=== PATIENT | female | born 1940 | race Caucasian/White ===

== ENCOUNTER 2016-11-10 20:42 | Emergency (ER) | payer MEDICARE ==
[~2016-11-10] VITALS: Ht 165.1 cm; Wt 97.5 kg
[~2016-11-10 20:42] MED LIST: HYDR-3812 PO
--- NOTE | 2016-11-10 21:01 | ED Chest Pain ---
General Chief Complaint: Chest Pain Stated Complaint: CHEST PAIN Source: patient, EMS, RN notes reviewed Exam Limitations: no limitations History of Present Illness Time seen by provider: 21:01 Initial Comments Sharp left sided chest pain that developed just MOTHER SUPERIOR while @ dinner p/ burping. Did radiate into her left arm. Much better now following 2 SL NTG. Denies any N/V, diaphoresis, or SOA. Severity/Quality: mild, sharp, stabbing Location: other (left chest) Radiation: arms (left) Activities at Onset: other (P/ burping while @ dinner) Modifying Factors: improves with nitroglycerin NTG SL MOTHER SUPERIOR: Yes Associated Symptoms: denies symptoms heartburn (???) Allergies and Home Medications Allergies Coded Allergies: No Known Drug Allergies (Unverified , 03/19/15) Home Medications (Reported) (Reported) Acetaminophen 500 Mg Tablet 1,000 MG PO Q6H PRN PRN PAIN (Reported) Lovastatin 40 Mg Tablet 40 MG PO supper meal (Reported) Review of Systems Constitutional: see HPI Cardiovascular: See HPI Chest Pain All Other Systems Reviewed Negative Unless Noted: Yes Past [employer]jp[employer]-Ryrfas-Nztkwe Hx Immunizations Up To Date Tetanus Booster (TDap): Unknown Date of Pneumonia Vaccine: Mar 20, 2012 Date of Influenza Vaccine: Oct 07, 2014 Seasonal Allergies Seasonal Allergies: Yes Surgeries HX Surgeries: No Surgeries: Appendectomy, Oophorectomy, Tubal Ligation Respiratory Hx Respiratory Disorders: Yes Respiratory Disorders: Pulmonary Embolism Cardiovascular Hx Cardiac Disorders: Yes Cardiac Disorders: Hypertension Neurological Hx Neurological Disorders: No Genitourinary Hx Genitourinary Disorders: Yes (INCONTINENT ) Gastrointestinal Hx Gastrointestinal Disorders: No Musculoskeletal Hx Musculoskeletal Disorders: No Musculoskeletal Disorders: Arthritis Endocrine Hx Endocrine Disorders: No HEENT HX ENT Disorders: No Cancer Hx Cancer: No Psychosocial Hx Psychiatric Problems: No Integumentary HX Skin/Integumentary Disorder: No Blood Transfusions Hx Blood Disorders: Yes (CLOTS IN 2011) Family Medical History Significant Family History: No Pertinent Family Hx Family Medial History: Alcoholism 19 FATHER G8 BROTHER Diabetes mellitus G8 BROTHER Physical Exam Vital Signs Vital Sign - Last 12Hours 11/10/16 21:03 Temp 97.9 Pulse 87 Resp 20 B/P 141/63 Pulse Ox 96 O2 Delivery Room Air Capillary Refill : General Appearance: No Apparent Distress WD/WN HEENT: Normal ENT Inspection Respiratory: No Respiratory Distress Cardiovascular: Regular Rate, Rhythm Gastrointestinal: SoftNo Tenderness, Other (obese) Rectal: Deferred Neurologic/Psychiatric: Alert Oriented x3 No Motor/Sensory Deficits Normal Mood/Affect Skin: Warm/Dry Progress/Results/Core Measures Results/Orders Lab Results Laboratory Tests Test 11/10/16 20:55 Range/Units Alanine Aminotransferase (ALT/SGPT) 13 0-55 U/L Albumin 3.9 3.2-4.5 G/DL Alkaline Phosphatase 63 40-136 U/L Anion Gap 12 5-14 MMOL/L Aspartate Amino Transf (AST/SGOT) 18 5-34 U/L B-Type Natriuretic Peptide 17.3 <100.0 PG/ML BUN/Creatinine Ratio 23 Basophils # (Auto) 0.0 0.0-0.1 10^3/uL Basophils (%) (Auto) 0 0-10 % Blood Urea Nitrogen 21 H 7-18 MG/DL Calcium Level 8.8 8.5-10.1 MG/DL Carbon Dioxide Level 20 L 21-32 MMOL/L Chloride Level 109 H 98-107 MMOL/L Creatinine 0.91 0.60-1.30 MG/DL Eosinophils # (Auto) 0.3 0.0-0.3 10^3/uL Eosinophils (%) (Auto) 3 0-10 % Estimat Glomerular Filtration Rate 60 Glucose Level 142 H 70-105 MG/DL Hematocrit 41 35-52 % Hemoglobin 13.7 11.5-16.0 G/DL Lipase 39 8-78 U/L Lymphocytes # (Auto) 2.7 1.0-4.0 X 10^3 Lymphocytes (%) (Auto) 30 12-44 % Magnesium Level 2.3 1.8-2.4 MG/DL Mean Corpuscular Hemoglobin 30 25-34 PG Mean Corpuscular Hemoglobin Concent 33 32-36 G/DL Mean Corpuscular Volume 89 80-99 FL Mean Platelet Volume 10.2 7.4-10.4 FL Monocytes # (Auto) 0.9 0.0-1.0 X 10^3 Monocytes (%) (Auto) 10 0-12 % Neutrophils # (Auto) 5.1 1.8-7.8 X 10^3 Neutrophils (%) (Auto) 57 42-75 % Platelet Count 231 130-400 10^3/uL Potassium Level 3.6 3.6-5.0 MMOL/L Red Blood Count 4.64 4.35-5.85 10^6/uL Red Cell Distribution Width 13.5 10.0-14.5 % Sodium Level 141 135-145 MMOL/L Total Bilirubin 0.2 0.1-1.0 MG/DL Total Protein 7.1 6.4-8.2 G/DL Troponin I < 0.30 <0.30 NG/ML White Blood Count 9.0 4.3-11.0 10^3/uL My Orders Orders-WILBERTO ARAGON DO Saline Lock/Iv-Start (11/10/16 20:59) Ekg Tracing (11/10/16 20:59) BNP (11/10/16 20:59) Cbc With Automated Diff (11/10/16 20:59) Comprehensive Metabolic Panel (11/10/16 20:59) Lipase (11/10/16 20:59) Magnesium (11/10/16 20:59) Troponin I (11/10/16 20:59) Chest 1 View, Ap/Pa Only (11/10/16 20:59) Vital Signs/I&O Vital Sign - Last 12Hours 11/10/16 21:03 Temp 97.9 Pulse 87 Resp 20 B/P 141/63 Pulse Ox 96 O2 Delivery Room Air ECG Initial ECG Impression Date: Nov 10, 2016 Initial ECG Impression Time: 20:49 Initial ECG Rate: 92 Initial ECG Rhythm: Normal Sinus Initial ECG Intervals: Normal Initial ECG Impression: Normal Initial ECG Comparisson: Unchanged Diagnostic Imaging Diagonstic Imaging: Xray Plain Films/CT/US/NM/MRI: chest (nothing acute) Departure Impression Impression: Primary Impression: Non-cardiac chest pain Additional Impression: Hx of hiatal hernia Disposition: 01 HOME, SELF-CARE Condition: Improved Departure-Patient Inst. Decision time for Depature: 23:07 Referrals: BIBI SPENCER MD Patient Instructions: Chest Pain That Is Not Caused by the Heart (DC) WILBERTO ARAGON DO Nov 10, 2016 21:01
[2016-11-10 21:06] LABS: BASOPHILS % (AUTO) 0 % (0-10); EOSINOPHILS # (AUTO) 0.3 10^3/uL (0.0-0.3); EOSINOPHILS % (AUTO) 3 % (0-10); LYMPHOCYTES # (AUTO) 2.7 X 10^3 (1.0-4.0); LYMPHOCYTES % (AUTO) 30 % (12-44); MEAN CORPUSCULAR HEMOGLOBIN 30 PG (25-34); MEAN CORPUSCULAR HGB CONC 33 G/DL (32-36); MEAN CORPUSCULAR VOLUME 89 FL (80-99); MEAN PLATELET VOLUME 10.2 FL (7.4-10.4); MONOCYTES # (AUTO) 0.9 X 10^3 (0.0-1.0); MONOCYTES % (AUTO) 10 % (0-12); NEUTROPHILS # (AUTO) 5.1 X 10^3 (1.8-7.8); NEUTROPHILS % (AUTO) 57 % (42-75); PLATELET COUNT 231 10^3/uL (130-400); RED BLOOD COUNT 4.64 10^6/uL (4.35-5.85); RED CELL DISTRIBUTION WIDTH 13.5 % (10.0-14.5)
[2016-11-10 21:30] LABS: ALANINE AMINOTRANSFERASE 13 U/L (0-55); ALBUMIN 3.9 G/DL (3.2-4.5); ANION GAP 12 MMOL/L (5-14); ASPARTATE AMINO TRANSFERASE 18 U/L (5-34); BILIRUBIN,TOTAL 0.2 MG/DL (0.1-1.0); BLOOD UREA NITROGEN 21 MG/DL (7-18); BUN/CREATININE RATIO 23; CALCIUM 8.8 MG/DL (8.5-10.1); CARBON DIOXIDE 20 MMOL/L (21-32); CHLORIDE 109 MMOL/L (98-107); CREATININE SERUM 0.91 MG/DL (0.60-1.30); GFR ESTIMATED 60; GLUCOSE 142 MG/DL (70-105); LIPASE 39 U/L (8-78); MAGNESIUM 2.3 MG/DL (1.8-2.4); POTASSIUM 3.6 MMOL/L (3.6-5.0); SODIUM 141 MMOL/L (135-145); TOTAL PROTEIN 7.1 G/DL (6.4-8.2)
--- NOTE | 2016-11-10 21:35 | Diagnostic Imaging Report ---
INDICATION: Chest pain. COMPARISON: 03/19/15. FINDINGS: Single view of the chest demonstrates clear lungs bilaterally. The heart is prominent but stable. There is no pneumothorax. Osseous structures are stable. IMPRESSION: No acute cardiopulmonary findings. Dictated by: Dictated on workstation # [id number]
[2016-11-10 21:47] LABS: TROPONIN I < 0.30 NG/ML (<0.30)
[2016-11-10] MEDS ORDERED: LOVA40TA2 PO (21:53)
[2016-11-10] MEDS ORDERED: Vitamin D (21:53)
[2016-11-10] MEDS ORDERED: metoprolol (21:53)
[2016-11-10] MEDS ORDERED: ACET-93 PO (21:53)
[2016-11-10 23:20] VITALS: BP 133/54
== END 2016-11-10 23:20 | disposition home or self-care (01) ==
LOC: EDUNIT# 20:42 → ER 20:44
DX: R07.89 Other chest pain (principal); I10 Essential (primary) hypertension; Z79.899 Other long term (current) drug therapy; Z86.711 Personal history of pulmonary embolism
CPT/HCPCS: 36415; 71010; 80053; 83690; 83735; 83880; 84484; 85025; 93005

== ENCOUNTER → 2016-12-11 | Outpatient (CLI) | payer MEDICARE ==
[~2016-12-11] MED LIST changes: +ACET-93 PO; +LOVA40TA2 PO; +Vitamin D; +metoprolol
--- NOTE | 2016-12-12 08:01 | ECHOCARDIOGRAPHY REPORT ---
PROCEDURE PHYSICIAN: CHANDANA MCCANN DATE OF PROCEDURE: 12/11/2016 TWO DIMENSIONAL ECHOCARDIOGRAM REPORT PRIMARY PHYSICIAN: OTHER PHYSICIAN: REFERRING PHYSICIAN: Dr. Purvis ORDERING PHYSICIAN: INDICATION FOR THE PROCEDURE: Chest pain. MEASUREMENTS DERIVED VALUES LV DIAMETER (LAX) NORMALS NORMALS Diastolic 4.2 (3.6-5.2) Eject. Fract. 60% (60%+/-6%) Systolic (2.3-3.9) Diastolic Vol. % Shortening (0.22-0.42) Systolic Vol. Aortic Root IVS THICKNESS Diastolic 1.3 (0.6-1.1) LVPW THICKNESS Diastolic 1.3 (0.6-1.1) LA DIAMETER Systolic 4.2 (2.1-3.7) FINDINGS: 1. Technical quality is good. 2. The left ventricle is normal in size with moderate left ventricular hypertrophy noted diffusely. Systolic function appeared to be normal. Estimated ejection fraction 60%. 3. The left atrium is mildly dilated. No clot or thrombus were seen within the left atrium. 4. The right atrium and right ventricle are normal in size. No clot or thrombus were seen within the right side. 5. Mitral valve is normal in morphology with mild mitral regurgitation noted by color Doppler flow. No mitral valve prolapse. No mitral valve stenosis. 6. Aortic valve is trileaflet with normal opening and closing pattern. No significant aortic stenosis or regurgitation was seen. 7. Tricuspid valve is normal in morphology with mild tricuspid regurgitation noted by color Doppler flow. Doppler across tricuspid valve estimated pulmonary artery pressure 35+ right atrial pressure. 8. Pulmonic valve is functioning normally. 9. No pericardial effusion. IN CONCLUSION: 1. Mild to moderate left ventricular hypertrophy noted diffusely with normal systolic function. Estimated ejection fraction 60%. 2. Mild mitral and tricuspid regurgitation. 3. Pulmonary hypertension with estimated pulmonary artery pressure of 40 to 45 mmHg. Job ID: [id number] Dictated Date: 12/11/2016 16:44:07 Wholesale Manager Date: 12/12/2016 07:55:24 / [email or web address]
== END ==
LOC: CARD 07:57
PROVIDERS: ATTEND Internal Medicine Cardiovascular Disease
DX: R07.9 Chest pain, unspecified (principal)
CPT/HCPCS: 93306